=== PATIENT | female | born 1950 | race Caucasian/White ===

== ENCOUNTER 2020-06-08 10:57 | Emergency (ER) | payer OTHER ==
[~2020-06-08 10:57] MED LIST: ALBUTEROL2.5 MG/3 M INH; ALPRAZOLAM0.5 MG PO; AMARYL4 MG PO; ATIVAN0.5 MG PO; CYMBALTA30 MG PO; DETROL LA2 MG PO; DIFLUCAN150 MG PO; DOXYCYCLINE HY100 MG PO; DULERA 200 MCG8.8 GM INH; FUROSEMIDE40 MG PO; IPRAT-ALBUT 0.5-3 ML INH; K-DUR TAB 10 M10 MEQ PO; K-DUR TAB 20 M20 MEQ PO; KENALOG 0.5% CR15 GM EXT; LEVOFLOXACIN500 MG PO; MEDROL4 MG PO; NITROSTAT0.4 MG SL; NIZORAL 2% CREA15 GM TOP; POTASSIUM CHLO10 ME1 PO; POTASSIUM CHLO20 ME2 PO; PREDNISONE 20 M20 MG PO; PREDNISONE50 MG PO; PRILOSEC OTC20 MG PO; PROAIR HFA8.5 GM INH; SYMBICORT 16010.2 GM INH; TENORMIN 50 MG50 MG PO; TESSALON PERLE100 MG PO; VALIUM 5 MG TAB5 MG PO; VENTOLIN HFA 66.7 GM INH; XANAX1 MG PO; ZITHROMAX250 MG PO; ZOFRAN4 MG PO
[2020-06-08 11:45] LABS: HEMOGLOBIN 14.4 gm/dl (12.3-15.3); RED BLOOD COUNT 4.65 M/UL (4.00-5.10); WHITE BLOOD COUNT 5.7 K/UL (4.5-11.0)
[2020-06-08 12:16] LABS: BUN/CREATININE RATIO 13 (0-10)
[2020-06-08] MEDS ORDERED: NAPROXEN125 MG/5 M PO (14:50)
== END 2020-06-08 18:49 | disposition home or self-care (01) ==
LOC: ER1 10:57
PROVIDERS: Internal Medicine
DX: R07.2 Precordial pain (principal); F41.9 Anxiety disorder, unspecified; I11.0 Hypertensive heart disease with heart failure; I50.9 Heart failure, unspecified; E11.9 Type 2 diabetes mellitus without complications; F17.210 Nicotine dependence, cigarettes, uncomplicated; Z90.710 Acquired absence of both cervix and uterus; R07.9 Chest pain, unspecified
CPT/HCPCS: 36415; 71046; 80053; 80307; 81001; 82550; 82553; 84484; 85025; 99285

== ENCOUNTER 2020-08-13 15:49 | Emergency (ER) | payer MEDICARE, OTHER ==
[~2020-08-13 15:49] MED LIST changes: +NAPROXEN125 MG/5 M PO
[2020-08-13] MEDS ORDERED: CYCLOBENZAPRINE10 MG PO (18:15)
== END 2020-08-13 19:15 | disposition home or self-care (01) ==
LOC: ER1 15:49
DX: S39.012A Strain of muscle, fascia and tendon of lower back, initial encounter (principal); S70.02XA Contusion of left hip, initial encounter; E11.9 Type 2 diabetes mellitus without complications; I11.0 Hypertensive heart disease with heart failure; I50.9 Heart failure, unspecified; Z88.1 Allergy status to other antibiotic agents; Y08.89XA Assault by other specified means, initial encounter; Y92.89 Other specified places as the place of occurrence of the external cause
CPT/HCPCS: 72131; 73502; 99284

== ENCOUNTER 2020-12-19 16:05 | Emergency (ER) | payer MEDICARE, OTHER ==
[~2020-12-19 16:05] MED LIST changes: +CYCLOBENZAPRINE10 MG PO
[2020-12-19 17:51] LABS: HEMOGLOBIN 13.5 gm/dl (12.3-15.3); RED BLOOD COUNT 4.46 M/UL (4.00-5.10); WHITE BLOOD COUNT 8.4 K/UL (4.5-11.0)
[2020-12-19 18:15] LABS: BUN/CREATININE RATIO 11 (0-10)
[2020-12-19] MEDS ORDERED: LASIX TAB 20 MG20 MG PO (22:13)
== END 2020-12-19 22:30 | disposition home or self-care (01) ==
LOC: ER1 16:05
PROVIDERS: Nurse Practitioner
DX: I50.9 Heart failure, unspecified (principal); M25.521 Pain in right elbow; J44.9 Chronic obstructive pulmonary disease, unspecified; E11.9 Type 2 diabetes mellitus without complications; F17.210 Nicotine dependence, cigarettes, uncomplicated; Z90.710 Acquired absence of both cervix and uterus
CPT/HCPCS: 71045; 73080; 80053; 81001; 82550; 82553; 83735; 83874; 84484; 85025; 93005; 99285

== ENCOUNTER 2021-03-21 06:34 | Emergency (ER) | payer MEDICARE, OTHER ==
[~2021-03-21 06:34] MED LIST changes: +LASIX TAB 20 MG20 MG PO
[2021-03-21 08:00] LABS: HEMOGLOBIN 13.9 gm/dl (12.3-15.3); RED BLOOD COUNT 4.64 M/UL (4.00-5.10); WHITE BLOOD COUNT 8.8 K/UL (4.5-11.0)
[2021-03-21 08:16] LABS: BUN/CREATININE RATIO 16 (0-10)
[2021-03-21] MEDS ORDERED: ASPIRIN CHEWABL81 MG PO (09:16)
[2021-03-21] MEDS ORDERED: NITROSTAT0.4 MG SL (09:16)
== END 2021-03-21 13:55 | disposition home or self-care (01) ==
LOC: ER1 06:34 → CDU 08:40 → ER1 13:55
PROVIDERS: Physician Assistant
DX: R07.89 Other chest pain (principal); J44.9 Chronic obstructive pulmonary disease, unspecified; K21.9 Gastro-esophageal reflux disease without esophagitis; E78.5 Hyperlipidemia, unspecified; I50.9 Heart failure, unspecified; Z88.0 Allergy status to penicillin; Z88.2 Allergy status to sulfonamides; F17.210 Nicotine dependence, cigarettes, uncomplicated; E11.9 Type 2 diabetes mellitus without complications; I11.0 Hypertensive heart disease with heart failure
CPT/HCPCS: 71045; 80053; 82550; 82553; 83874; 84484; 85025; 93005; 99285

== ENCOUNTER 2021-04-27 13:07 | Emergency (ER) | payer MEDICARE, OTHER ==
[~2021-04-27 13:07] MED LIST changes: +ASPIRIN CHEWABL81 MG PO
[2021-04-27 15:05] LABS: HEMOGLOBIN 14.3 gm/dl (12.3-15.3); RED BLOOD COUNT 4.73 M/UL (4.00-5.10)
[2021-04-27 15:40] LABS: BUN/CREATININE RATIO 9 (0-10)
[2021-04-28 12:38] LABS: HEMOGLOBIN 15.3 gm/dl (12.3-15.3); RED BLOOD COUNT 5.02 M/UL (4.00-5.10); WHITE BLOOD COUNT 7.9 K/UL (4.5-11.0)
[2021-04-28 13:03] LABS: BUN/CREATININE RATIO 13 (0-10)
[2021-04-29 04:14] LABS: HEMOGLOBIN 14.7 gm/dl (12.3-15.3); RED BLOOD COUNT 4.88 M/UL (4.00-5.10); WHITE BLOOD COUNT 7.4 K/UL (4.5-11.0)
[2021-04-29] MEDS ORDERED: LIPITOR TAB 2020 MG PO (12:13)
== END 2021-04-29 15:05 | disposition home or self-care (01) ==
LOC: ER1 13:07
PROVIDERS: Emergency Medicine; Physician Assistant
DX: G45.9 Transient cerebral ischemic attack, unspecified (principal); E11.9 Type 2 diabetes mellitus without complications; R53.1 Weakness; I11.0 Hypertensive heart disease with heart failure; I50.32 Chronic diastolic (congestive) heart failure; K21.9 Gastro-esophageal reflux disease without esophagitis; F41.9 Anxiety disorder, unspecified; E78.5 Hyperlipidemia, unspecified; I10 Essential (primary) hypertension; Z90.710 Acquired absence of both cervix and uterus; J44.9 Chronic obstructive pulmonary disease, unspecified; Z88.0 Allergy status to penicillin; Z88.2 Allergy status to sulfonamides; Z88.1 Allergy status to other antibiotic agents; Z85.828 Personal history of other malignant neoplasm of skin; Z20.822 Contact with and (suspected) exposure to COVID-19
CPT/HCPCS: ECHO; 70450; 70551; 71045; 80048; 80053; 81001; 82550; 82553; 82962; 83874; 84484; 85025; 93005; 93306; 93880; 94640; 94664; 94760; 96374; 97162; 97165; 99284; J1940; U0002

== ENCOUNTER 2021-04-29 19:30 | Emergency (ER) | payer MEDICARE ==
[~2021-04-29 19:30] MED LIST changes: +LIPITOR TAB 2020 MG PO
== END 2021-04-30 08:41 | disposition home or self-care (01) ==
LOC: ER1 19:30
DX: R11.0 Nausea (principal); Z59.00 Homelessness unspecified; I11.0 Hypertensive heart disease with heart failure; I50.9 Heart failure, unspecified; F17.200 Nicotine dependence, unspecified, uncomplicated
CPT/HCPCS: 99283

== ENCOUNTER 2021-10-02 11:32 | Emergency (ER) | payer MEDICARE, OTHER | END 2021-10-02 14:25 | disposition left against medical advice (07) | LOC: ER1 11:32 | DX: Z53.21 Procedure and treatment not carried out due to patient leaving prior to being seen by health care provider (principal) ==